=== PATIENT | male | born 1945 | race Caucasian/White ===

== ENCOUNTER 2017-06-15 03:10 | Emergency (ER) | payer MEDICARE, BC ==
[2017-06-15] MEDS ORDERED: ALBUTEROL SULFATE 2.5 MG/0.5 ML VIAL.NEB IH ONE ×3 (03:14→03:24)
[2017-06-15] MEDS ORDERED: METHYLPREDNISOLONE SOD SUCC/PF 40 MG/ML VIAL IV ONE (03:18)
[2017-06-15] MEDS ORDERED: METHYLPREDNISOLONE SOD SUCC/PF 125 MG/2 ML VIAL ONE (03:23)
[2017-06-15 03:29] LABS: Hematocrit 41.6 % (42.0-52.0); Hemoglobin 14.1 gm/dL (13.5-18.0); Mean Cell Volume 86.7 fl (78-100); Mean Corpuscular Hemoglobin 29.4 pg (27-31); Mean Corpuscular Hgb Conc 33.9 g/dl (32-36); Mean Platelet Volume 10.5 fl (6.0-9.5); Neutrophil # 9.9 K/mm3 (1.3-6.0); Neutrophil % 81.2 % (42-75.0); Platelet Count 221 K/mm3 (150-450); Red Cell Distribution Width 14.6 % (11.5-14.0); White Blood Count 12.2 K/mm3 (4.0-10.5)
[2017-06-15 03:49] LABS: Albumin * 3.1 gm/dl (3.4-5.0); Anion Gap 20.2 mmol/L (6.8-13.8); BUN/Creatinine Ratio 10.3 (9.0-21.6); Bilirubin, Total 2.1 mg/dL (0.0-1.1); Calcium * 9.6 mg/dL (7.9-10.9); Carbon Dioxide 19.1 mmol/L (24-32.6); Potassium 3.3 mmol/L (3.4-4.6); Total Protein 7.5 gm/dL (6.2-8.2)
--- NOTE | 2017-06-15 05:22 | ERNOTE ---
Dyspnea - Date Date of Service: 06/15/17 - General Presenting Symptoms: shortness of breath, wheezing Time Seen by Provider: 06/15/17 03:30 Source: patient, family - Immun/Allergies/Home Medications Immunizations: IMMUNIZATION HX Immunizations Up to Date Yes History of Influenza Vaccine Yes Hx Pneumococcal Vaccination Yes Allergies/Adverse Reactions: Allergies Sulfa (Sulfonamide Antibiotics) Allergy (Verified 06/15/17 03:22) Home Medications: HOME MEDICATIONS Aspirin [Aspirin Chewable] 81 mg PO DAILY 03/12/16 [Last Taken Unknown] Fenofibrate [Lofibra] 160 mg PO DAILY 03/12/16 [Last Taken Unknown] Hydrochlorothiazide [Hydrodiuril] 50 mg PO DAILY 03/12/16 [Last Taken Unknown] Lisinopril [Zestril] 40 mg PO DAILY 03/12/16 [Last Taken Unknown] Potassium Chloride [Klor-Con 10] 10 meq PO BID 03/12/16 [Last Taken Unknown] amLODIPine BESYLATE [Norvasc] 10 mg PO HS 03/12/16 [Last Taken Unknown] Glimepiride [Amaryl] 1 mg PO DAILY #30 tablet 05/19/16 [Last Taken Unknown] Albuterol Sulfate [Proair Hfa] 2 puff IH Q6H PRN 05/23/16 [Last Taken Unknown] Mometasone Furoate [Asmanex] 1 puff IH HS 05/23/16 [Last Taken Unknown] Multivitamin [One Daily Essential] 1 cap PO DAILY 05/23/16 [Last Taken Unknown] Simvastatin [Zocor] 40 mg PO DAILY 05/23/16 [Last Taken Unknown] Tadalafil [Cialis] 5 mg PO DAILY 05/23/16 [Last Taken Unknown] Vitamin B Complex Vit C No.4 [Super B Complex] 1 tab PO DAILY 05/23/16 [Last Taken Unknown] rOPINIRole HCL [Requip] 4 mg PO HS 05/23/16 [Last Taken Unknown] Venlafaxine HCl [Effexor] 75 mg PO BID 05/24/16 [Last Taken Unknown] Clindamycin HCl [Cleocin HCl] 300 mg PO Q6H #24 capsule 05/26/16 [Last Taken Unknown] Dabigatran Etexilate Mesylate [Pradaxa] 150 mg PO BID #60 capsule 05/26/16 [ Last Taken Unknown] Metoprolol Tartrate [Lopressor] 50 mg PO BID #60 tablet 05/26/16 [Last Taken Unknown] predniSONE [Prednisone] 1 tab PO TID #15 tab 06/15/17 [Last Taken Unknown] - History of Present Illness Narrative: patient with hx of asthma had an acute episode this evening Date (Duration): 06/15/17 Severity: moderate Initiating event: Reports: unknown Frequency of episodes: Reports: occassional episodes Modifying Factors - (Improves): Reports: nothing Modifying Factors (Worsens): Reports: activity Associated Symptoms-Dyspnea: Reports: denies symptoms Review of Systems - Narrative Narrative: occaisional episodes of asthna attacks - Review of Systems Constitutional: Present: See HPI EYE: Present: no symptoms reported ENT: Present: no symptoms reported Respiratory: Present: See HPI, wheezing Cardiology: Present: no symptoms reported Gastrointestinal/Abdominal: Present: no symptoms reported Genitourinary: Present: no symptoms reported Musculoskeletal: Present: no symptoms reported Skin: Present: no symptoms reported - Narrative Narrative: hx of asthma - Patient's Past Medical History Patient History - Medical: Depression, Other - asthma Patient History - Cardiac/Respiratory: Hypertension Patient History - Cancer: No Hx of Cancer Patient History - Surgical Procedures: Other Patient History - Other: None - Family History Family History:: no untoward family reactions to anesthesia, no familial bleeding tendencies, no family history of clotting disorders, no family history of premature - Family History Mother Family History - Medical: , Diabetes Type 2 Family History - Cardiac/Respiratory: Myocardial Infarction - Social History Living Situations: home Psych History: Hx of Depression Smoking Status: Never smoker Alcohol Use: none Drug Use: none - Immunizations Immunizations Up to Date: Yes Hx Pneumococcal Vaccination: Yes History of Influenza Vaccine: Yes Physical Exam - Physical Exam Narrative: patient c/o of an acute asthma attack General Appearance: Present: moderate distress Head Exam: Present: normal inspection, no evidence of injury Eye Exam: Normal inspection: bilateral, PERRL: bilateral, EOMI: bilateral Ears, Nose, Throat: Present: normal ENT inspection Neck: Present: normal inspection, nontender Respiratory: Present: decreased breath sounds, wheezing Cardiovascular/Chest: Present: regular rate, rhythm, no murmur, normal peripheral pulses Peripheral Pulses: N=norm/S=strong/W=weak/B=bound/A=absent: Carotid (R): Normal , Carotid (L): Normal, Radial (R): Normal, Radial (L): Normal, Femoral (R): Normal, Femoral (L): Normal, Dorsalis-pedis (R): Normal, Dorsalis-pedis (L): Normal Gastrointestinal/Abdominal: Present: normal bowel sounds, nontender, nondistended, soft, no organomegaly Back Exam: Present: normal inspection, normal range of motion, no CVA tenderness , no vertebral tenderness Extremity Exam: Present: normal inspection, non-tender, normal range of motion, no edema Neurological Exam: Present: alert, oriented, normal mood/affect, no motor/ sensory deficits DTR: N=norm/NB=norm/brisk/A=abs/DD=dull/dimin/HC=hyperactive: Bicep (R): Normal , Bicep (L): Normal, Tricep (R): Normal, Tricep (L): Normal, Knee (R): Normal, Knee (L): Normal, Ankle (R): Normal, Ankle (L): Normal Skin Exam: Present: normal color, warm/dry Lymphatic Exam: Present: no adenopathy ED Progress - Results and Orders Patient's Lab Results:: I have reviewed the patient's lab results. - Vital Signs Patient's Vital Signs:: I have reviewed the patient's vital signs. Vital Signs: Vital Signs 06/15/17 06/15/17 06/15/17 03:12 03:17 03:24 Temperature 37.8 C H Pulse Rate 124 H 146 H 124 H Respiratory 44 H 44 H Rate Blood Pressure 148/80 O2 Sat by Pulse 90 90 Oximetry 06/15/17 06/15/17 06/15/17 03:52 04:27 04:57 Temperature Pulse Rate 104 H 93 98 Respiratory 38 H 34 H 30 H Rate Blood Pressure 148/66 121/61 120/69 O2 Sat by Pulse 93 95 93 Oximetry - EKG EKG: NSR - X-Ray X-Ray #1 X-Ray: chest - no acute process - Progress/Reassessment Chief Complaint: Dyspnea Progress:: Improved - Transfer of Care Expected Disposition: Discharge Plan - Plan Plan: to be dismimssed Departure Clinical Impression: Asthma attack - Departure Disposition: Home self-care Condition: Fair Instructions: Bronchospasm, Adult Referrals: Ivy,Arnav, MD [Primary Care Provider] - Prescriptions: predniSONE [Prednisone] 1 tab PO TID #15 tab
[2017-06-15 06:05] VITALS: BP 129/65
== END 2017-06-15 05:30 | disposition home or self-care (01) ==
LOC: ER 03:10
DX: J45.998 Other asthma (principal)